=== PATIENT | female | born 1975 ===

== ENCOUNTER 2025-01-27 06:16 | Day surgery (SDC) | payer BC, SELFPAY ==
[2025-01-17 11:21] VITALS: BMI 20.9
--- NOTE | 2025-01-18 15:55 | PTCARENOTE ---
Abnormal ECG on 01/17/2025, Dr. Parr notified. No further orders at this time.
[2025-01-27] VITALS (10 sets, daily range): BP systolic 125–149; BP diastolic 67–89; BMI 20.9
[2025-01-27] MEDS: TYLENOL 1000 MG PO (09:12)
[2025-01-27] MEDS: NORMOSOL-R/PLASMALYTE-A 1000 IV (09:13)
--- NOTE | 2025-01-27 09:16 | W.SUR.PREOP ---
Pre-Operative Surgical Note
-
I have examined this patient prior to the performance of the scheduled procedure.
The patient's condition is unchanged from the time of the current History and
Physical and the patient is able to undergo the scheduled procedure.
--- NOTE | 2025-01-27 09:16 | HP.FOC2 ---
Focused History & Physical
Chief Complaint
HPI:
Chief Complaint: Biliary colic
HPI / Indication for Planned Procedure: This is a 49-year-old female who presents with biliary colic. Will plan for laparoscopic cholecystectomy with cholangiogram.
Relevant Past Medical History: Negative
Relevant Social History: Negative
Relevant Family History: Negative
Relevant Past Surgical History: Negative
Review of Systems
Review of Pertinent Systems: All Systems Negative
Medication
See Medication form for detailed medications: Yes
Medication List (including Herbals & OTC):
amoxicillin 875 mg tablet 875 mg PO BID mouth abscess 01/21/25
dexamethasone 1 tab PO DIRECTED mouth abscess 01/21/25
ibuprofen 200 mg tablet 200 mg PO Q6H PRN pain 01/27/25
Medications Reviewed: Yes
Allergies and Reactions
Patient has Allergies: No
Noted Allergies and Reactions:
Allergy/AdvReac Type Severity Reaction Status Date / Time
No Known Allergies Allergy Unverified 01/27/25 08:43
Pertinent Physical Exam
All Other Systems: Negative
Head/Neck: Normal
Diagnosis / Assessment
This is a 49-year-old female who presents with biliary colic.
Plan / Procedure
Will plan for laparoscopic cholecystectomy with cholangiogram.
Anesthesia/Sedation to be done by Anesthesia Provider: Yes
--- NOTE | 2025-01-27 11:05 | W.IMMPOSTOP ---
Surgical Immed Post Op Note
-
Primary Surgeon: Cj Dailey MD
Assisting Surgeon: None
Pre-op Diagnosis: Biliary colic
Post-op Diagnosis: Chronic cholecystitis
Procedure Performed: Laparoscopic cholecystectomy with cholangiogram
Anesthesia Type: General
Specimen / Cultures: Gallbladder and contents
Estimated Blood Loss: 11 cc
Complications: None
Operative Findings: Mild chronic cholecystitis with adhesions from the surrounding duodenum and omentum to the anterior surface of the gallbladder which were carefully lysed. A critical view of safety was obtained prior to a cholangiogram which
demonstrated somewhat dilated common bile duct as well as a small blind ended accessory duct. There was a fairly prominent posterior branch off of the right hepatic which had to be ligated.
--- NOTE | 2025-01-27 11:08 | OR.RPT ---
Operative Report
Operative Report
Patient Name: Sheila Licona
: 1975
Date of Operation: 01/27/2025
Preoperative Diagnosis: Biliary colic
Postoperative Diagnosis: Chronic cholecystitis
Procedure(s):
Laparoscopic Cholecystectomy with Cholangiogram
Surgeon(s):
Dr. Dailey
Rental Car Deliverer(s):
BABITA Clarke
Anesthesia: General
Estimated Blood Loss: 11 cc
Urine Output: None
Drains/Lines/Implants: None
Specimens:
1. Gallbladder and contents
HPI/Surgical Indications:
This is a 49-year-old female with a history of postprandial right upper quadrant pain. Exam, labs and imaging are consistent with biliary colic. Risks/Benefits/Alternatives were discussed at length, and the patient agreed to proceed with surgery.
Operative Findings: Mild chronic cholecystitis with adhesions from the surrounding duodenum and omentum to the anterior surface of the gallbladder which were carefully lysed. A critical view of safety was obtained prior to a cholangiogram which
demonstrated somewhat dilated common bile duct as well as a small blind ended accessory duct. There was a fairly prominent posterior branch off of the right hepatic which had to be ligated.
Procedure Description:
The patient was brought to the Operating Room and placed in the supine position with one arm tucked. Following uneventful induction of general endotracheal anesthesia, an orogastric tube was placed. The abdomen was prepped and draped in the usual
sterile fashion. A timeout was performed confirming the procedure, consent, and that IV antibiotics were infused and sequential compression devices were confirmed to be on. The abdomen was entered using a left subcostal Veress technique which
required a single pass followed by a 5 mm right upper quadrant Optiview trocar. Pneumoperitoneum to 15 mmHg pressure was obtained without difficulty and we confirmed that no injury had occurred during our entry. The patient was positioned in
reverse Trendelenberg and rotated with the right side up slightly. Two 5 mm trocars were then placed along the right subcostal margin, followed by a 12 mm port in the epigastrium. A locking grasping forceps was placed on the fundus of the
gallbladder where it was then retracted cephalad and to the right. There were some adhesions from the surrounding duodenum and omentum anterior surface of the gallbladder which were carefully lysed. Using appropriate grasping instruments, the
peritoneum overlying the triangle of Calot was incised and extended superiorly on both the anterior and posterior gallbladder olmedo. The infundibulum was dissected off the cystic plate. The cystic triangle was dissected until a critical view of
safety was achieved. The cystic artery was medialized, dissected and controlled with 2 proximal clips and 1 distal. The cystic duct/gallbladder junction in turn was identified, dissected circumferentially and a clip was placed. There was also a
fairly prominent branch off of the right hepatic on the posterior surface of the gallbladder which was ligated. A ductotomy was made and a cholangiocatheter on an Martins clamp was inserted into the cystic duct. A C-arm was draped and brought into
the field. An intra-operative cholangiogram was performed and was noted to have:
No filling defects in the biliary tree
Mild biliary dilation
Brisk flow of contrast into the duodenum
There was also a small structure at the distal end of the common bile duct that filled, perhaps a blind ended accessory biliary duct
The catheter was then removed and the cystic duct was controlled with a clip followed by a 0 PDS Endoloop. After ensuring both the artery and duct were divided, the gallbladder was freed from the liver using electrocautery. There was some spillage
of bile, but no spillage of stones. The gallbladder bed was inspected and excellent hemostasis was obtained. The gallbladder was extracted through the 12 mm trocar site using an endocatch bag. The abdomen was again irrigated and excellent
hemostasis was assured. All remaining trocars were then removed and the pneumoperitoneum was evacuated. The 12 mm trocar site was closed using 0 PDS suture. All trocar sites were closed at the skin level using 4-0 Monocryl followed by Dermabond.
Overall, the patient tolerated the procedure well and was taken to the Recovery Room postoperatively in stable condition.
I was the attending physician and performed the procedure with assistance of the PA above. The assistance of BABITA Clarke was required due to the complexity of the procedure. During the procedure Jacqueline assisted with port placement, instrument
and needle exchanges, and closure of the wound. I was present for all portions of the case.
Cj Dailey MD
[2025-01-27] MEDS: DILAUDID 0.25 MG IV (11:34)
[2025-01-27] MEDS: MOTRIN 600 MG PO (12:37)
== END 2025-01-27 14:42 | disposition home or self-care (01) ==
LOC: SDS 06:16
PROVIDERS: ATTENDING PHYSICIAN Surgery; FAMILY PHYSICIAN Family Medicine
DX: K80.10 Calculus of gallbladder with chronic cholecystitis without obstruction (principal)
CPT/HCPCS: 47563; 36415; 74300; 76000; 88304; 93005; A4300